=== PATIENT | female | born 1945 | race American Indian/Alaskan Native ===

== ENCOUNTER 2022-04-26 08:53 | Day surgery (SDC) | payer MEDICARE, BC, OTHER ==
[2022-04-26] MEDS ORDERED: Lactated Ringers 1,000 ML IV SCH (10:15)
[2022-04-26] MEDS ORDERED: Propofol 200 MG/20 ML SDV ONE (11:29)
[2022-04-26] MEDS ORDERED: Lidocaine 2% 5 ML SDV ONE (11:30)
[2022-04-26 12:04] VITALS: PULSE 55
[2022-04-26 13:37] VITALS: BP 135/65
== END 2022-04-26 12:25 | disposition home or self-care (01) ==
LOC: MW.SDS 08:53
PROVIDERS: ATTEND Surgery
DX: R19.5 Other fecal abnormalities (principal); I10 Essential (primary) hypertension; E11.9 Type 2 diabetes mellitus without complications; F41.9 Anxiety disorder, unspecified; K21.9 Gastro-esophageal reflux disease without esophagitis; Z79.899 Other long term (current) drug therapy; Z98.890 Other specified postprocedural states; Z87.891 Personal history of nicotine dependence
CPT/HCPCS: 45378; 82947; J2704; J7120